=== PATIENT | male | born 1965 | race Caucasian/White ===

== ENCOUNTER 2022-08-10 12:55 | Day surgery (SDC) | payer OTHER ==
[~2022-08-10] VITALS: Ht 182.9 cm; Wt 108.9 kg
[2022-08-10] MEDS ORDERED: LACTATED RINGERS 1,000 ML IV STA (13:09)
[2022-08-10] MEDS ORDERED: LIDOCAINE JELLY 2% 6 ML SYRINGE MM PRN (13:15)
[2022-08-10] MEDS ORDERED: HURRICAINE EXT TUBE (BENZOCAINE) XX PRN (13:15)
[2022-08-10] MEDS ORDERED: LACTATED RINGERS 1,000 ML IV ONE ×2 (13:17→13:18)
[2022-08-10 13:25] VITALS: BP 126/96
--- NOTE | 2022-08-10 14:06 | Progress Note-Pre Operative ---
Pre-Operative Progress Note Date of Available H&P: Aug 10, 2022 Date H&P Reviewed: Aug 10, 2022 Time H&P Reviewed: 13:00 History & Physical: No changes noted Pre-Operative Diagnosis: GERD, hx of colon ca DONNA GLEASON MD Aug 10, 2022 14:06
[2022-08-10] MEDS ORDERED: PANT40TA2 PO (14:07)
--- NOTE | 2022-08-10 14:08 | Discharge Inst-Surgical ---
D/C Lap Instructions-KIDO New, Converted, or Re-Newed RX: RX on Chart Follow Up Activity as tolerated High Fiber Diet 25g or more per day Avoid Alcohol, Caffeine, Spicy [place] and Acid foods. Drink 64 fluid oz or more of fluids per day. Symptoms to Report: Fever over 101 degree F, Nausea/Vomiting If any problems/questions: Contact your physician or go to Emergency Room DONNA GLEASON MD Aug 10, 2022 14:07
[2022-08-10] MEDS ORDERED: MIDAZOLAM 2 MG/2 ML (VERSED) VIAL ONE (14:15)
[2022-08-10] MEDS ORDERED: PROPOFOL INJECTION 50 ML IV ONE (14:15)
[2022-08-10] MEDS ORDERED: ONDANSETRON 4 MG/2 ML (SDV) Z0FRAN IVP PRN (14:15)
[2022-08-10] MEDS ORDERED: ONDANSETRON 4 MG (ZOFRAN) ORAL DISSOLVE TAB PO PRN (14:15)
[2022-08-10 15:05] VITALS: BP 109/72
[2022-08-10 15:10] VITALS: BP 113/75
[2022-08-10 15:15] VITALS: BP 123/80
[2022-08-10 15:41] VITALS: BP 134/89
--- NOTE | 2022-08-10 16:52 | Anesthesia-General Post-Op ---
MAC Patient Condition Mental Status/LOC: Same as Preop Cardiovascular: Satisfactory Nausea/Vomiting: Absent Respiratory: Satisfactory Pain: Controlled Complications: Absent Post Op Complications Complications None Follow Up Care/Instructions Patient Instructions None needed. Anesthesiology Discharge Order Discharge Order Patient is doing well, no complaints, stable vital signs, no apparent adverse anesthesia problems. No complications reported per nursing. CAROLYN WISEMAN CRNA Aug 10, 2022 16:52
--- NOTE | 2022-08-10 18:02 | OPERATIVE REPORT ---
DATE OF SERVICE: 08/10/2022 PREOPERATIVE DIAGNOSES: Gastroesophageal reflux disease, history of Chatman syndrome and personal history of colon cancer. POSTOPERATIVE DIAGNOSES: Reflux esophagitis between Braxton grade B and C, small hiatal hernia 2 cm in size, moderate gastritis, normal colon and rectum. PROCEDURE: EGD with biopsy, colonoscopy. SURGEON: Donna Galloway MD. ANESTHESIA: Monitored anesthesia care. ESTIMATED BLOOD LOSS: Minimal. FINDINGS: Reflux esophagitis between Braxton grade B and C, small hiatal hernia 2 cm in size, moderate gastritis, normal colon and rectum. DISPOSITION: The patient tolerated the procedure well. INDICATIONS: The patient is a 57-year-old male referred over to us for screening colonoscopy. He has a personal history of colon cancer on the left side of the colon and underwent a low anterior colorectal resection at [facility] in 2013. 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 He was advised at [facility] to proceed with colonoscopies on a yearly basis. He has also had worsening issues with epigastric burning sensation in recent years. He does not report any hematemesis, no coffee ground emesis. DESCRIPTION OF PROCEDURE: The patient was brought to the endoscopy suite, laid in left lateral decubitus position. After adequate IV pain and sedative medications and monitored anesthesia care, the mouthpiece was applied. The endoscope was placed in the mouth, visualizing the pharynx and hypopharyngeal region. Vocal cords, epiglottis and vallecula identified and appeared to be normal. The endoscope was then gently intubated into the esophageal opening and esophagus insufflated. The endoscope was then advanced through the first, second and third portions of esophagus at the level of the GE junction, a reflux esophagitis Braxton between grade B and C identified. No ulcers or strictures. Biopsies were taken with forceps with visualization of good hemostasis. The endoscope was then advanced into the stomach and endoscope retroflexed, visualizing a small hiatal hernia approximately 2 cm in size. There was a moderate gastritis, which was more diffuse throughout the stomach. No formal ulcerations, polyps, or any neoplasms and a biopsy was taken of the antrum to rule out H. pylori with visualization of good hemostasis. The endoscope was then advanced to the pylorus and the first and second portion of the duodenum, which appeared normal with no distal obstructions. The endoscope was then slowly withdrawn while taking a second look and suctioning of residual air with no additional findings. A digital rectal examination was performed. There was mild stage I external and internal hemorrhoids. Normal sphincter tone was felt and there were no palpable masses. Prostate gland was palpable and appeared normal. The endoscope was then intubated to the anus and rectum gently insufflated. The endoscope was then advanced through the first, second and third portions through the valves of [place] of the rectum and the area of ileocolonic anastomosis was identified and widely patent and no recurrent lesions. The endoscope was then advanced to the remainder of the descending, transverse and ascending colon to the cecum, which were normal. There were no polyps or any neoplasms identified. The endoscope was then slowly withdrawn while taking a second look and suctioning of residual air with no additional findings. The patient tolerated the procedure well. We will recommend the necessary lifestyle and dietary accommodation including small and more frequent meals, avoidance of eating at night as well as head elevation while lying supine. He also needs to avoid caffeinated beverages, spicy, greasy and acidic foods and we will also start him on Protonix 40 mg daily. We will also recommend a high-fiber diet with a fiber supplement, which should equal or exceed 30 grams daily to promote soft stools on a daily basis. Again, the recommendation from his specialist at [facility] recommended that he proceed with yearly colonoscopies due to a history of Chatman syndrome and we will have him followup in one year. Job ID: [id number] DocumentID: [id number] Dictated Date: 08/10/2022 15:11:28 Line Service Attendant Date: 08/10/2022 18:01:38 Dictated By: DONNA GALLOWAY MD
== END 2022-08-10 15:45 | disposition home or self-care (01) ==
LOC: ENDO 12:55
PROVIDERS: ATTEND Surgery
DX: K29.50 Unspecified chronic gastritis without bleeding (principal); K21.00 Gastro-esophageal reflux disease with esophagitis, without bleeding; K44.9 Diaphragmatic hernia without obstruction or gangrene